=== PATIENT | female | born 1965 | race Caucasian/White ===

== ENCOUNTER 2022-11-06 10:10 | Outpatient (OUT) | payer BC, SELFPAY ==
--- NOTE | 2022-11-06 10:13 | XR_ITS ---
The [address] [address] Patient Name: EDWIN LION MRN: [id number] date: 1965 Sex: F Assigned Patient Location: [facility] Current Patient Location: [facility] Accession/Order Number: [id number] Exam Date: 11/06/2022 10:12 Report Date: 11/06/2022 10:47 At the request of: HO VUONG Procedure: XR foot LT min 3V PROCEDURE: XR foot LT min 3V HISTORY: LEFT FOOT PAIN ; chronic pain in left first and second digits. COMPARISON: XR foot left 02/06/2022 FINDINGS: BONES:Fusion of the first tarsal-metatarsal joint via medial plate and screws without evidence of hardware fracture or loosening. Screws extend into the medial and middle cuneiforms, with a single screw extending through the base of the second metatarsal into the base of the third metatarsal. 2 screws within head of second metatarsal. Joint space narrowing and articular surface irregularity of the second toe metatarsophalangeal joint and proximal interphalangeal joint, along with increased sclerosis of the second proximal phalanx. Moderate degenerative changes of the first metatarsophalangeal joint. SOFT TISSUES:No visible soft tissue swelling. EFFUSION:None visible. OTHER: Negative. IMPRESSION: 1. Stable surgical changes without evidence of hardware failure or change in alignment. 2. Stable degenerative changes of the first and second toes, with suspected increasing sclerosis of second proximal phalanx of uncertain etiology. Electronically authenticated by: JUNG CHAMBERS Date: 11/06/2022 10:47
== END 2022-11-06 10:11 ==
LOC: RAD 10:10
PROVIDERS: PCP Physician Assistant; Visit Provider Physician Assistant
DX: M79.672 Pain in left foot (principal)
CPT/HCPCS: 73630

== ENCOUNTER 2023-02-12 07:49 | Outpatient (OUT) | payer BC, SELFPAY ==
--- NOTE | 2023-02-12 08:06 | CT_ITS ---
[address] [address] Patient Name: EDWIN LION MRN: [id number] date: 1965 Sex: F Assigned Patient Location: CT Current Patient Location: CT Accession/Order Number: [id number] Exam Date: 02/12/2023 08:03 Report Date: 02/12/2023 09:03 At the request of: HO VUONG Procedure: CT foot LT wo con EXAMINATION: CT foot LT wo con HISTORY: Primary Osteoarthritis Left Foot And Ankle ; intermittent left foot pain COMPARISON: XR foot left 11/06/2022 TECHNIQUE: Multi-planar CT images were created without and/or with IV contrast according to examination type. Dose reduction techniques were achieved by using automated exposure control and/or adjustment of mA and/or kV according to patient size and/or use of iterative reconstruction technique. FINDINGS: BONES: Mechanical fusion of the first tarsal-metatarsal joint via a lateral plate and screws. Fusion of the medial and middle cuneiforms via several screws. The second most proximal screw within the plate along medial margin of the first metatarsal extends to and contacts the undersurface of the proximal third metatarsal which is developed bone formation partially encompassing the tip of the screw, with lucency immediately surrounding the screw suggesting movement. 2 small screws within head of second metatarsal. Small partially ossified fragments at base of second proximal phalanx suggestive of partially healed fracture fragments. Subchondral cyst extending into the base of the second proximal phalanx. Irregularity of the head of the proximal phalanx and base of the second middle phalanx. Moderate degenerative changes of the first metatarsophalangeal joint. SOFT TISSUES: Increased soft tissue density surrounding the second metatarsophalangeal joint and the second proximal interphalangeal joint. EFFUSION: None visible. OTHER: Negative. CT/CT foot LT wo con IMPRESSION: 1. No acute bone abnormality. 2. Surgical changes as detailed above. No appreciable hardware failure, but one of the screws contacts the plantar surface of the third metatarsal may cause irritation. 3. Degenerative changes versus prior comminuted fracture at base of second proximal phalanx. 4. Irregularity of the articular surfaces and increased density of surrounding soft tissue involving the second metatarsophalangeal joint and the second proximal interphalangeal joint; degenerative versus secondary to prior surgery versus inflammatory changes. Electronically authenticated by: JUNG CHAMBERS Date: 02/12/2023 09:03
== END 2023-02-12 07:50 | disposition home or self-care (01) ==
LOC: CT 07:51
PROVIDERS: PCP Nurse Practitioner; Visit Provider Physician Assistant
DX: M19.072 Primary osteoarthritis, left ankle and foot (principal); M20.42 Other hammer toe(s) (acquired), left foot; M25.872 Other specified joint disorders, left ankle and foot
CPT/HCPCS: 73700